=== PATIENT | male | born 1990 | race Caucasian/White ===

== ENCOUNTER 2018-05-30 23:39 | Emergency (ER) | payer BC, OTHER, SELFPAY ==
[~2018-05-30] VITALS: Ht 177.8 cm; Wt 68.0 kg
[2018-05-30 23:40] VITALS: BP 137/85
[2018-05-30] MEDS ORDERED: LIDOCAINE-MPF 2% ,5ML ONE ×2 (23:53→23:56)
[2018-05-31] MEDS ORDERED: LIDOCAINE-MPF 1%, 5ML INFIL ONE (00:30)
[2018-05-31] MEDS ORDERED: LIDOCAINE 1%, 10ML INFIL ONE (00:30)
== END 2018-05-31 01:38 | disposition home or self-care (01) ==
LOC: ED 05-31 01:04
DX: S61.411A Laceration without foreign body of right hand, initial encounter (principal); F10.129 Alcohol abuse with intoxication, unspecified; W26.0XXA Contact with knife, initial encounter; Y93.89 Activity, other specified; Y92.009 Unspecified place in unspecified non-institutional (private) residence as the place of occurrence of the external cause; Y99.8 Other external cause status
CPT/HCPCS: 12041; 99284